=== PATIENT | male | born 1960 | race Asian ===

== ENCOUNTER 2017-09-16 16:06 | Inpatient (IN) | payer MEDICAID ==
[~2017-09-16] VITALS: Ht 162.6 cm; Wt 69.7 kg
[2017-09-16 19:31] LABS: microscopic required? NO
[2017-09-16 20:02] LABS: BASOPHIL % 0.8 % (0-2); PLATELET COUNT 246 x10^3mcL (130-400); RED CELL DISTRIBUTION WIDTH 13.2 % (11.5-14.5)
[2017-09-16 20:10] LABS: CALCIUM 9.5 mg/dL (8.5-10.1); CHLORIDE SERUM 106 mmol/L (98-107); CREATININE SERUM 1.2 mg/dL (0.7-1.3); GFR1 > 60 mL/min; GLUCOSE SERUM 91 mg/dL (74-106); POTASSIUM SERUM 3.5 mmol/L (3.5-5.1); SODIUM SERUM 142 mmol/L (136-145)
[2017-09-16 20:15] LABS: ALBUMIN 4.2 g/dL (3.4-5.0); ALKALINE PHOSPHATASE 46 U/L (46-116); ALT/SGPT 38 U/L (16-63); AST/SGOT 28 U/L (15-37); BILIRUBIN TOTAL 0.48 mg/dL (0.20-1.00)
[2017-09-16 20:16] LABS: urine erythrocyte NEGATIVE (NEGATIVE)
[2017-09-16 20:23] LABS: AMPHETAMINE QUAL UR NONE DETECTED (NEG <=1000)
[2017-09-16 20:41] LABS: CHOLESTEROL/HDL RATIO 4.1; PHOSPHOROUS 3.6 mg/dL (2.5-4.9)
[2017-09-16 20:44] LABS: FREE T4 0.99 ng/dL (0.76-1.46); FREE THYROXINE INDEX 2.9 ug/dL (1.4-4.5); T3 TOTAL 1.21 ng/mL
[2017-09-16 21:09] VITALS: BP 141/86
[2017-09-17] MEDS ORDERED: FENOFIBRATE160 M1 PO (02:00)
[2017-09-17] MEDS ORDERED: OMEPRAZOLE40 M1 PO (02:00)
[2017-09-17 05:58] VITALS: BP 99/65
[2017-09-17 09:43] VITALS: BP 112/69
[2017-09-17 13:50] VITALS: BP 106/66
[2017-09-17 16:12] VITALS: BP 106/66
== END 2017-09-17 16:55 | disposition home or self-care (01) | DRG 243 ==
LOC: ED 16:06 → DU 19:16
PROVIDERS: Emergency Medicine; ADMIT Family Medicine
DX: K21.9 Gastro-esophageal reflux disease without esophagitis (principal); N17.0 Acute kidney failure with tubular necrosis; R73.03 Prediabetes; R20.0 Anesthesia of skin; E78.5 Hyperlipidemia, unspecified; K29.70 Gastritis, unspecified, without bleeding; M17.12 Unilateral primary osteoarthritis, left knee; Z68.26 Body mass index [BMI] 26.0-26.9, adult; Z87.891 Personal history of nicotine dependence
CPT/HCPCS: 83880; 84439; J7030; Q0092

== ENCOUNTER 2018-12-23 03:36 | Emergency (ER) | payer OTHER ==
[~2018-12-23] VITALS: Ht 162.6 cm; Wt 70.3 kg
[~2018-12-23 03:36] MED LIST: FENOFIBRATE160 M1 PO; OMEPRAZOLE40 M1 PO
[2018-12-23 03:47] VITALS: Ht 162.6 cm; Wt 70.3 kg
[2018-12-23 04:41] LABS: ALBUMIN 4.2 g/dL (3.4-5.0); ALKALINE PHOSPHATASE 67 U/L (46-116); ALT/SGPT 56 U/L (16-63); AST/SGOT 27 U/L (15-37); BILIRUBIN TOTAL 0.4 mg/dL (0.20-1.00); CALCIUM 9.6 mg/dL (8.5-10.1); CARBON DIOXIDE 27.9 mmol/L (21-32); CHLORIDE SERUM 103 mmol/L (98-107); CREATININE SERUM 1.2 mg/dL (0.7-1.3); GFR1 > 60 mL/min; GLUCOSE SERUM 133 mg/dL (74-106); LIPASE 204 IU/L (73-393); POTASSIUM SERUM 3.9 mmol/L (3.5-5.1); SODIUM SERUM 140 mmol/L (136-145)
[2018-12-23 04:57] LABS: PLATELET COUNT 221 x10^3mcL (130-400); RED CELL DISTRIBUTION WIDTH 12.7 % (11.5-14.5)
[2018-12-23 06:12] VITALS: BP 110/65
== END 2018-12-23 06:12 | disposition home or self-care (01) ==
LOC: ED 03:36
PROVIDERS: Emergency Medicine
DX: M79.10 Myalgia, unspecified site (principal); R10.9 Unspecified abdominal pain; R07.89 Other chest pain; E78.1 Pure hyperglyceridemia; M19.90 Unspecified osteoarthritis, unspecified site; Z88.8 Allergy status to other drugs, medicaments and biological substances
CPT/HCPCS: J1885; J7030; Q0092

== ENCOUNTER 2020-01-01 03:20 | Emergency (ER) | payer OTHER ==
[~2020-01-01] VITALS: Ht 165.1 cm; Wt 76.2 kg
[2020-01-01 04:32] LABS: PLATELET COUNT 217 x10^3mcL (130-400); RED CELL DISTRIBUTION WIDTH 12.6 % (11.5-14.5)
[2020-01-01 04:35] LABS: CALCIUM 9.3 mg/dL (8.5-10.1); CARBON DIOXIDE 25.9 mmol/L (21-32); CHLORIDE SERUM 104 mmol/L (98-107); GFR1 > 60 mL/min; GLUCOSE SERUM 128 mg/dL (74-106); POTASSIUM SERUM 3.7 mmol/L (3.5-5.1); SODIUM SERUM 141 mmol/L (136-145)
[2020-01-01 04:39] LABS: ALKALINE PHOSPHATASE 65 U/L (46-116); ALT/SGPT 66 U/L (16-63); AST/SGOT 18 U/L (15-37); BILIRUBIN TOTAL 0.38 mg/dL (0.20-1.00); TOTAL PROTEIN, SERUM 7.8 g/dL (6.4-8.2)
[2020-01-01 06:38] VITALS: BP 122/77
== END 2020-01-01 06:38 | disposition home or self-care (01) ==
LOC: ED 03:20
PROVIDERS: Emergency Medicine
DX: R09.1 Pleurisy (principal); R07.89 Other chest pain; Z88.8 Allergy status to other drugs, medicaments and biological substances
CPT/HCPCS: 36415; 83880; J1885; Q0092

== ENCOUNTER 2020-12-27 02:52 | Emergency (ER) | payer OTHER ==
[~2020-12-27] VITALS: Ht 165.1 cm; Wt 64.9 kg
[2020-12-27 03:04] VITALS: Ht 165.1 cm; Wt 64.9 kg
[2020-12-27 03:58] LABS: PLATELET COUNT 225 x10^3mcL (152-348); RED CELL DISTRIBUTION WIDTH 12.9 % (12.1-16.2)
[2020-12-27 04:03] LABS: rbc morphology (normal/abnorm) NORMAL (NORMAL)
[2020-12-27 04:20] LABS: CALCIUM 9.4 mg/dL (8.5-10.1); CARBON DIOXIDE 24.8 mmol/L (21-32); CHLORIDE SERUM 102 mmol/L (98-107); CREATININE SERUM 0.9 mg/dL (0.7-1.3); GFR1 > 60 mL/min; GLUCOSE SERUM 114 mg/dL (74-106); POTASSIUM SERUM 3.7 mmol/L (3.5-5.1); SODIUM SERUM 139 mmol/L (136-145)
[2020-12-27 04:26] LABS: ALBUMIN 4.1 g/dL (3.4-5.0); ALKALINE PHOSPHATASE 50 U/L (46-116); ALT/SGPT 30 U/L (16-63); AST/SGOT 21 U/L (15-37); BILIRUBIN TOTAL 0.5 mg/dL (0.20-1.00); LIPASE 155 IU/L (73-393); TOTAL PROTEIN, SERUM 7.4 g/dL (6.4-8.2)
[2020-12-27] MEDS ORDERED: NOR10T PO (05:09)
[2020-12-27 06:05] VITALS: BP 114/67
== END 2020-12-27 06:05 | disposition home or self-care (01) ==
LOC: ED 02:52
PROVIDERS: Emergency Medicine
DX: G62.9 Polyneuropathy, unspecified (principal); R07.89 Other chest pain; R51.9 Headache, unspecified; E78.5 Hyperlipidemia, unspecified; E11.9 Type 2 diabetes mellitus without complications; M19.90 Unspecified osteoarthritis, unspecified site; Z88.8 Allergy status to other drugs, medicaments and biological substances
CPT/HCPCS: 83880; J1885